=== PATIENT | male | born 1990 | race Caucasian/White ===

== ENCOUNTER 2025-04-01 23:34 | Emergency (ER) | payer OTHER, SELFPAY ==
[2025-04-02 00:57] LABS: Absolute Lymphocytes (CBC) 2.5 K/uL (0.7-4.9); Hematocrit 41.7 % (39.6-49.0); Hemoglobin 14.3 g/dL (13.6-17.9); MCH 31.5 pg (27.0-35.0); MCHC 34.2 g/dL (32.0-36.0); MCV 91.9 fL (80-100); MPV 7.5 fL (7.6-11.3); Nucleated RBC Absolute Count 0.0 (0-0); Nucleated Red Blood Cells % 0.0 % (0-0); PT Prothrombin Time 11.3 SECONDS (10-13.0); Protime INR 1.0; RBC Red Blood Cell Count 4.54 M/uL (4.33-5.43); White Blood Count 6.30 thou/uL (4.3-10.9)
[2025-04-02 01:07] LABS: ALT/SGPT 27 U/L (16-61); AST/SGOT 16 U/L (15-37); Albumin 3.6 g/dL (3.4-5.0); Albumin/Globulin Ratio 1.1 (1.1-1.8); Alkaline Phosphatase 61 U/L (45-117); Anion Gap 6.8 mEq/L (5.0-15.0); BUN Blood Urea Nitrogen 8 mg/dL (7-18); Globulin 3.2 g/dL (2.3-3.5); Glucose Level 90 mg/dL (74-106); Magnesium 1.8 mg/dL (1.6-2.4); NT PRO-BNP 61 pg/mL (<125); Potassium 3.8 mEq/L (3.5-5.1); Troponin High Sensitivity 4.1 pg/mL (<58.9)
[2025-04-02 01:10] LABS: Bilirubin Indirect, Calculated 0.0 mg/dL (0.2-0.8)
--- NOTE | 2025-04-02 01:27 | EDPHYS ---
Physician Documentation [facility] Name: Flavio Resendiz Age: 34 yrs Sex: Male : 1990 Arrival Date: 04/01/2025 Time: 23:34 Bed 16 Private MD: ED Physician Fabián Banuelos HPI: 04/02 01:26 This 34 yrs old Male presents to ER via Ambulatory with complaints of sp4 Dizziness, Feet Swelling, Shortness Of Breath. 04/03 00:05 Patient presents with acute reported swelling over the feet shortness of breath with sp4 physical activity. Also associated with complaint of dizziness. Historical: - Allergies: 04/01 23:59 No Known Allergies; ha1 - PMHx: 23:59 Hypercholesterolemia; ha1 - Immunization history:: Adult Immunizations not up to date. - Infectious Disease History:: Denies. - Social history:: Smoking status: Patient reports the use of cigarette tobacco products, denies chronic smoking, but will smoke occasionally, Patient reports use of chewing tobacco. Patient uses street drugs, marijuana. - Family history:: Father has/had heart disease. ROS: 04/03 00:05 Constitutional: Negative for fever, chills, and weight loss, positive dyspnea on sp4 exertion, bilateral foot swelling, shortness of breath and dizziness All other systems are negative, Exam: 00:05 Constitutional: This is a well developed, well nourished patient who is awake, alert, sp4 and in no acute distress. Head/Face: Normocephalic, atraumatic. Eyes: Pupils equal round and reactive to light, extra-ocular motions intact. Lids and lashes normal. Conjunctiva and sclera are not injected. Cornea within normal limits. Periorbital areas with no swelling, redness, or edema. ENT: Nares patent. No nasal discharge, no septal abnormalities noted. Tympanic membranes are normal and external auditory canals are clear. Oropharynx with no redness, swelling, or masses, exudates, or evidence of obstruction, uvula midline. Mucous membranes moist. Neck: Trachea midline, no thyromegaly or masses palpated, and no cervical lymphadenopathy. Supple, full range of motion without nuchal rigidity, or vertebral point tenderness. Chest/axilla: Normal chest wall appearance and motion. Nontender with no deformity. No lesions are appreciated. Cardiovascular: Regular rate and rhythm with a normal S1 and S2. No gallops, murmurs, or rubs. No pulse deficits. Respiratory: Lungs have equal breath sounds bilaterally, clear to auscultation and percussion. No rales, rhonchi or wheezes noted. No increased work of breathing, no retractions or nasal flaring. Abdomen/GI: Soft, with normal bowel sounds. No distension or tympany. No guarding or rebound. No evidence of tenderness throughout. Back: No spinal tenderness. No costovertebral tenderness. Skin: Warm, dry with normal turgor. Normal color with no rashes, no lesions, and no evidence of cellulitis. MS/ Extremity: Pulses equal, no cyanosis. Neurovascular intact. Full, normal range of motion. Neuro: Awake and alert, GCS 15, oriented to person, place, time, and situation. Cranial nerves II-XII grossly intact. Motor strength 5/5 in all extremities. Sensory grossly intact. Psych: Awake, alert, with orientation to person, place and time. Behavior, mood, and affect are within normal limits 00:05 ECG was reviewed by the Attending Physician. EKG at 0014 normal sinus bradycardia rate 43 Vital Signs: 04/01 23:39 BP 122 / 81; Pulse 42; Resp 18 S; Temp 98.2; Pulse Ox 99% on R/A; Weight 86.18 kg; ha1 Height 5 ft. 11 in. ; 04/02 00:40 BP 102 / 59; Pulse 51; Resp 16; Pulse Ox 100% on R/A; af3 01:44 BP 104 / 54; Pulse 43; Resp 16; Pulse Ox 99% on R/A; af3 04/01 23:39 Body Mass Index 26.50 (86.18 kg, 180.34 cm) ha MDM: 04/01 23:46 Medical Screening Exam initiated sp4 04/03 00:07 Differential diagnosis: cardiac arrhythmia, generalized weakness, near-syncope, sp4 syncope, vertigo. Data reviewed: vital signs, nurses notes, lab test result(s), EKG, radiologic studies, plain films. 04/01 23:46 Order name: Basic Metabolic Panel; Complete Time: 01: sp4 04/01 23:46 Order name: CBC with Diff; Complete Time: : sp4 04/01 23:46 Order name: LFT's; Complete Time: 01:23 sp4 04/01 23:46 Order name: Magnesium; Complete Time: 01:23 sp4 04/01 23:46 Order name: NT PRO-BNP; Complete Time: 01:23 sp4 04/01 23:46 Order name: PT-INR; Complete Time: 01:10 sp4 04/01 23:46 Order name: Troponin HS; Complete Time: 01: sp4 04/01 23:46 Order name: XRAY Chest (1 view); Complete Time: 00:08 sp4 04/01 23:46 Order name: EKG; Complete Time: 23:46 sp4 04/01 23:46 Order name: Cardiac monitoring; Complete Time: 00:24 sp4 04/01 23:46 Order name: EKG - Nurse/Tech; Complete Time: 00:24 sp4 04/01 23:46 Order name: IV Saline Lock; Complete Time: 00:24 sp4 04/01 23:46 Order name: Labs collected and sent; Complete Time: 00:24 sp4 04/01 23:46 Order name: O2 Per Protocol; Complete Time: 00:14 sp4 04/01 23:46 Order name: O2 Sat Monitoring; Complete Time: 00:14 sp4 EC/20 00:14 Rate is 43 beats/min. Rhythm is regular, Sinus bradycardia. QRS [place] is Normal. [place] sp4 interval is normal. QRS interval is normal. QT interval is normal. No Q waves. T waves are Normal. No ST changes noted. Clinical impression: No evidence of ischemia. Interpreted by me. Reviewed by me. Administered Medications: No medications were administered Disposition: 04/03 00:08 Chart complete. sp4 Disposition Summary: 04/02/25 01:26 Discharge Ordered Problem: new sp4 Symptoms: are unchanged sp4 Condition: Stable sp4 Diagnosis - Localized edema sp4 Followup: sp4 - With: Private Physician - When: 7 - 10 days - Reason: Recheck today's complaints Discharge Instructions: - Discharge Summary Sheet sp4 - Edema, [id number] sp4 Forms: - Patient Portal Instructions sp4 Signatures: Dispatcher [employer] Radha Frias RN RN ha1 Fabián Banuelos MD MD sp4 Corrections: (The following items were deleted from the chart) 04/01 23:46 23:46 BASIC METABOLIC PANEL+C.LAB.BRZ ordered. EDMS EDMS 23:46 23:46 CBC+H.LAB.BRZ ordered. EDMS EDMS 23:46 23:46 HEPATIC FUNCTION+C.LAB.BRZ ordered. EDMS EDMS 23:46 23:46 MAGNESIUM+C.LAB.BRZ ordered. EDMS EDMS 23:46 23:46 PROBNP+C.LAB.BRZ ordered. EDMS EDMS 23:46 23:46 PROTIME (+INR)+COAG.LAB.BRZ ordered. EDMS EDMS 23:46 23:46 Troponin High Sensitivity+C.LAB.BRZ ordered. EDMS EDMS
--- NOTE | 2025-04-02 01:27 | ER ---
Nurse's Notes [facility] Name: Flavio Resendiz Age: 34 yrs Sex: Male : 1990 Arrival Date: 04/01/2025 Time: 23:34 Bed 16 Private MD: Diagnosis: Localized edema Presentation: 04/01 23:39 Chief complaint: Patient states: THIS MORNING I WAS GETTING STARTED TO WORK OUT AND ha1 STARTED TO FEEL SHORTNESS OF BREATH, BILATERAL FEET SWELLING . SWELLING IMPROVED BUT FEELING SHORTNESS OF BREATH. 23:39 Coronavirus screen: Client denies travel out of the [place] in the last 14 days. Ebola ha1 Screen: No symptoms or risks identified at this time. Initial Sepsis Screen: Does the patient meet any 2 criteria? No. Patient's initial sepsis screen is negative. Does the patient have a suspected source of infection? No. Patient's initial sepsis screen is negative. Risk Assessment: Do you want to hurt yourself or someone else? Patient reports no desire to harm self or others. Onset of symptoms was April 01, 2025. 23:39 Method Of Arrival: Ambulatory ha1 23:39 Acuity: SWAPNIL 2 ha1 Triage Assessment: 23:34 General: Appears comfortable, Behavior is calm, cooperative. Pain: Denies pain. Neuro: ha1 Level of Consciousness is awake, alert, obeys commands, Oriented to person, place, time, situation. Cardiovascular: Capillary refill < 3 seconds Patient's skin is warm and dry. Respiratory: Reports shortness of breath at rest Airway is patent Respiratory effort is even, unlabored, Respiratory pattern is regular, symmetrical, Onset: The symptoms/episode began/occurred gradually, the patient has mild shortness of breath. GI: No signs and/or symptoms were reported involving the gastrointestinal system. Abdomen is round non-distended. Historical: - Allergies: 23:59 No Known Allergies; ha1 - PMHx: 23:59 Hypercholesterolemia; ha1 - Immunization history:: Adult Immunizations not up to date. - Infectious Disease History:: Denies. - Social history:: Smoking status: Patient reports the use of cigarette tobacco products, denies chronic smoking, but will smoke occasionally, Patient reports use of chewing tobacco. Patient uses street drugs, marijuana. - Family history:: Father has/had heart disease. Screenin/20 00:02 [facility] ED Fall Risk Assessment (Adult) History of falling in the last 3 months, ha1 including since admission No falls in past 3 months (0 pts) Confusion or Disorientation No (0 pts) Intoxicated or Sedated No (0 pts) Impaired Gait No (0 pts) Mobility Assist Device Used No (0 pt) Altered Elimination No (0 pt) Score/Fall Risk Level 0 - 2 = Low Risk Oriented to surroundings, Maintained a safe environment, Educated pt \T\ family on fall prevention, incl call for assistance when getting out of bed. Abuse screen: Denies threats or abuse. Denies injuries from another. Nutritional screening: No deficits noted. Tuberculosis screening: No symptoms or risk factors identified. Assessment: 00:24 General: Appears in no apparent distress. comfortable, well groomed, well developed, af3 Behavior is calm, cooperative, appropriate for age. Pain: Denies pain. Neuro: Level of Consciousness is awake, alert, obeys commands, Oriented to person, place, time, situation, Appropriate for age. Cardiovascular: Patient's skin is warm and dry. Rhythm is sinus bradycardia. Respiratory: Airway is patent Respiratory effort is even, unlabored, Respiratory pattern is regular, symmetrical. Derm: Skin is intact, Skin is pink, warm \T\ dry. normal. 01:44 Reassessment: Patient appears in no apparent distress at this time. Patient and/or af3 family updated on plan of care and expected duration. Pain level reassessed. Patient is alert, oriented x 3, equal unlabored respirations, skin warm/dry/pink. Vital Signs: 04/01 23:39 BP 122 / 81; Pulse 42; Resp 18 S; Temp 98.2; Pulse Ox 99% on R/A; Weight 86.18 kg; ha1 Height 5 ft. 11 in. ; 04/02 00:40 BP 102 / 59; Pulse 51; Resp 16; Pulse Ox 100% on R/A; af3 01:44 BP 104 / 54; Pulse 43; Resp 16; Pulse Ox 99% on R/A; af3 04/01 23:39 Body Mass Index 26.50 (86.18 kg, 180.34 cm) ha1 ED Course: 04/01 23:37 Patient arrived in ED. gm2 23:45 Fabián Banuelos MD is Attending Physician. sp4 23:59 Triage completed. ha1 04/02 00:23 Cheri Zapata, RN is Primary Nurse. af3 00:24 No provider procedures requiring assistance completed. Initial lab(s) drawn, by ED af3 staff, sent to lab. EKG done, by ED staff, reviewed by Fabián Banuelos MD. Inserted saline lock: 20 gauge in left antecubital area, using aseptic technique. Blood collected. Flushed with 10 mL NS. 00:24 Patient has correct armband on for positive identification. Bed in low position. Call af3 light in reach. Provided Education on: plan of care . 00:26 Arm band placed on. af3 01:32 XRAY Chest (1 view) In Process Unspecified. EDMS 01:46 IV discontinued, intact, bleeding controlled, No redness/swelling at site. Pressure af3 dressing applied. Administered Medications: No medications were administered Medication: 00:24 VIS not applicable for this client. af3 Outcome: 01:26 Discharge ordered by . sp4 01:45 Discharged to home ambulatory, with significant other, af3 01:45 Condition: stable 01:45 Discharge instructions given to patient, Instructed on discharge instructions, follow up and referral plans. Demonstrated understanding of instructions, follow-up care, 01:46 Patient left the ED. af3 Signatures: Dispatcher [employer] EDID Radha Troy RN RN ha1 Fabián Banuelos MD MD sp4 Christin Delgadillo 2 Cheri Zapata, RN RN af3
--- NOTE | 2025-04-02 02:36 | RAD REPORT ---
XR CHEST 1 VIEW CLINICAL INDICATION: Chest pain. COMPARISON: Chest radiograph 12/08/2023 FINDINGS: LUNGS/PLEURAL SPACES: Lungs are clear. No pleural effusion. No pneumothorax. HEART/MEDIASTINUM: Within normal range. BONES/UPPER ABDOMEN/SOFT TISSUES: Unremarkable. IMPRESSION: Negative chest exam. Electronically signed by: Landy Enrique MD 04/02/2025 02:32 AM CDT RP Due to temporary technical issues with the PACS/[employer] reporting system, reports are being funmi d by the in-house radiologist without review as a courtesy to ensure prompt reporting the interpreting radiologist is fully responsible for the content of the report. Transcribed Date/Time: 04/02/2025 2:36 AM
[2025-04-02 07:54] VITALS: TEMP 98.2
[2025-04-02 08:05] VITALS: BP 104/54; O2SAT 99
== END 2025-04-02 01:46 | disposition home or self-care (01) ==
LOC: ER 23:34
DX: R60.0 Localized edema (principal); R06.02 Shortness of breath; R42 Dizziness and giddiness; E78.00 Pure hypercholesterolemia, unspecified; F17.210 Nicotine dependence, cigarettes, uncomplicated
CPT/HCPCS: 36415; 71045; 80048; 80076; 83735; 83880; 84484; 85025; 85610; 93005; 99284